=== PATIENT | female | born 1945 | race Caucasian/White ===

== ENCOUNTER → 2017-02-08 | Outpatient (CLI) | payer MEDICARE ==
[~2017-02-08] MED LIST: ACTOS15 MG PO; ALTACE10 MG PO; AMLODIPINE BES2.5 MG PO; ASPIRIN81 M1; ASPIRIN81 M1 PO; BYETTA10 MCG/0.0 SC; GLUCOPHAGE500 MG PO; LANTUS100 U/ML SC; MOTRIN800 MG PO; PRILOSEC20 MG PO; SIMVASTATIN40 MG PO; TENORETIC-25/501 TAB PO; VICODIN ES 7501 TAB PO
[2017-02-08 08:49] LABS: ALKALINE PHOSPHATASE 65 U/L (45-117); BILIRUBIN, TOTAL 0.4 mg/dl (0.2-1.0); BUN 20 mg/dl (7-24); CARBON DIOXIDE 28 mmol/L (21-32); CHLORIDE 106 mmol/L (98-107); EST GLOM FILT AFRICAN AMERICAN > 60 ml/min; GLUCOSE 118 mg/dL (65-99); SGOT/AST 17 IU/L (3-35); SGPT/ALT 17 U/L (12-78); SODIUM 143 mmol/L (136-145); TOTAL PROTEIN 6.6 gm/dL (6.4-8.2)
[2017-02-08 09:02] LABS: HEMOGLOBIN A1c 7.8 % (4.8-5.6)
[2017-02-09 08:06] LABS: MICRO ALBUMIN/CRE RATIO <11.4 (0.0-30.0)
== END | disposition home or self-care (01) ==
LOC: LAB 08:02
PROVIDERS: Internal Medicine Endocrinology, Diabetes & Metabolism
DX: E11.9 Type 2 diabetes mellitus without complications (principal)

== ENCOUNTER → 2019-04-13 | Outpatient (CLI) | payer MEDICARE ==
[2019-04-13 09:12] LABS: ALBUMIN 3.1 gm/dl (3.1-4.5); ALKALINE PHOSPHATASE 83 U/L (45-117); BUN 20 mg/dl (7-24); CHLORIDE 108 mmol/L (98-107); CHOLESTEROL 133 mg/dL (<200); CREATININE 1.01 mg/dL (0.55-1.02); HDL CHOLESTEROL 44 mg/dl (40-60); LDL CHOLESTEROL 68 mg/dL (9-159); POTASSIUM 3.8 mmol/L (3.5-5.1); SGOT/AST 16 IU/L (3-35); SGPT/ALT 26 U/L (12-78); SODIUM 141 mmol/L (136-145); TOTAL PROTEIN 6.7 gm/dL (6.4-8.2); TRIGLYCERIDES 106 mg/dl (<150); VLDL CHOLESTEROL 21 mg/dL (6-40)
[2019-04-14 07:04] LABS: CREATININE,URINE 49.9 mg/dL (Not Estab.); MICRO ALBUMIN/CRE RATIO <6.0 (0.0-30.0)
== END | disposition home or self-care (01) ==
LOC: LAB 08:18
PROVIDERS: Internal Medicine Endocrinology, Diabetes & Metabolism
DX: E11.9 Type 2 diabetes mellitus without complications (principal)

== ENCOUNTER 2024-02-26 07:54 | Emergency (ER) | payer MEDICARE ==
[~2024-02-26] VITALS: Ht 154.9 cm; Wt 54.4 kg
[2024-02-26 08:03] VITALS: BP 107/37
[2024-02-26] MEDS ORDERED: Acetaminophen/Oxycodone 5 MG/325 MG TABLET PO ONE (08:15)
[2024-02-26] MEDS ORDERED: PERCOCET 5-3251 EACH PO (09:55)
== END 2024-02-26 10:00 | disposition home or self-care (01) ==
LOC: ED 07:54
DX: S92.351A Displaced fracture of fifth metatarsal bone, right foot, initial encounter for closed fracture (principal); E11.9 Type 2 diabetes mellitus without complications; I10 Essential (primary) hypertension; W01.198A Fall on same level from slipping, tripping and stumbling with subsequent striking against other object, initial encounter; Y93.89 Activity, other specified; Y92.009 Unspecified place in unspecified non-institutional (private) residence as the place of occurrence of the external cause; Y99.8 Other external cause status